=== PATIENT | female | born 1960 | race Caucasian/White ===

== ENCOUNTER 2016-07-14 14:00 | Inpatient (IN) | payer BC ==
[~2016-07-14] VITALS: Ht 170.2 cm; Wt 98.6 kg
--- NOTE | ~2016-07-14 | OR ---
PATIENT'S NAME: JORGE CONTRERASI Rosa Isela [facility] AGE: 56 Y [address] ROOM: [place] [address] LOCATION: [facility] ADMIT DATE: 07/28/2016 OR/Procedure Report DISCHARGE DATE: FAMILY PHYSICIAN: Kary Ledezma MD ATTENDING PHYSICIAN: ROBE MANRIQUEZ SURGEON: Robe Manriquez MD GEOCHEMIST: Donnie Flores CST/PADDY and Robe Zhu. DATE OF PROCEDURE: 07/28/2016 PRE-OP DIAGNOSIS: Degenerative joint disease, right knee. POST-OP DIAGNOSIS: Degenerative joint disease, right knee. OPERATION: Right total knee arthroplasty with computer navigation. ANESTHESIA: Spinal anesthesia plus adductor canal block plus periarticular local anesthesia (ropivacaine with epinephrine and Toradol). ESTIMATED BLOOD LOSS: Less than 10 mL. DRAIN: None. SPECIMEN: None. COMPLICATIONS: None. IMPLANT SYSTEM: [place] [employer]: 1. Size 5 right posterior stabilized femoral component. 2. Size 4 universal modular tibial baseplate. 3. 11 mm, posterior stabilized, size 4, X3 tibial polyethylene insert. 4. 32 mm oval X3 patella component. INDICATIONS FOR SURGERY: Carey Contreras is a 56-year-old female who presents with advanced right knee degenerative joint disease and associated severely compromised activities of daily living. The patient has decided to proceed with knee replacement after having been thoroughly counseled regarding the associated risks, benefits, and limitations. We have specifically reviewed the risks and implications of infection, deep venous thrombosis, pulmonary embolism, mortality, neurovascular complications, blood transfusion (and associated potential for disease transmission or transfusion reaction), stiffness, instability, mechanical deterioration of the components (due to wear and or loosening), and the potential need for revision. We have also emphasized the importance of active involvement and compliance with post- operative physical therapy as a means of optimizing range of motion and [facility] AGE: 56 Y [address] ROOM: [address] [address] LOCATION: [facility] ADMIT DATE: 07/28/2016 OR/Procedure Report DISCHARGE DATE: FAMILY PHYSICIAN: Kary Ledezma MD ATTENDING PHYSICIAN: ROBE MANRIQUEZ functional recovery. Informed consent has been granted. DESCRIPTION OF PROCEDURE: The patient was positioned supine after administration of anesthesia and prophylactic antibiotics. A well-padded pneumatic tourniquet was placed around the right proximal thigh, and the right lower extremity was prepped and draped with vigilant sterile technique. The patient's name as well as the intended operative side and procedure were confirmed with a verbal time-out involving myself, the circulating nurse, the scrub nurse, and the anesthesiologist. Examination under anesthesia demonstrated a well-healed inferomedial and inferolateral arthroscopy portal scars. There was a mild effusion. There were no active skin lesions or masses. There was no erythema. There was no abnormal warmth. Range of motion under anesthesia was from 2 degrees of hyperextension to 140 degrees of flexion. There was a 2B [place] and a 2+ pivot shift. Negative posterior drawer. There was no varus and valgus instability. The right lower extremity was elevated and exsanguinated with an Esmarch wrap, and the pneumatic tourniquet was inflated to 300 mmHg. The knee was approached through a longitudinal midline incision. A medial parapatellar arthrotomy was performed and the patella was everted. Examination of the joint space demonstrated a moderate amount of benign-appearing translucent synovial fluid. The anterior cruciate ligament was absent. The posterior cruciate ligament was intact. There was a small osteophyte at the intercondylar notch. There were intermixed grade 3 and grade 4 degenerative changes extending across the equator of the patella. A medial compartment unicompartmental arthroplasty was not appropriate due to the magnitude of the patellofemoral degenerative changes and the absence of the anterior cruciate ligament. There was a 1 cm diameter region of full-thickness articular cartilage loss at the central superior aspect of the femoral trochlea. There was a large osteophyte at the medial aspect of the femoral trochlea. There was full-thickness loss of articular cartilage involving 90% of the medial femoral condyle and the posterior medial 2/3rds of medial tibial plateau. There was a small osteophyte at the medial tibial plateau. There was a large osteophyte at the medial femoral condyle. There was a moderate-sized osteophyte at the lateral femoral condyle. There were mild grade 3 degenerative changes at the medial half of the lateral tibial plateau. There was a small osteophyte at the lateral tibial plateau. There was a large undersurface flap tear at the posterior horn of the medial meniscus. There was mild inner perimeter tearing of the lateral meniscus. Remnants of the menisci and cruciate ligaments were excised. The Mettl computer navigation femoral tracker was pinned in place at the distal aspect PATIENT'S NAME: CAREY CONTRERAS [facility] AGE: 56 Y [address] ROOM: [id number] [place], [place] [address] LOCATION: [facility] ADMIT DATE: 07/28/2016 OR/Procedure Report DISCHARGE DATE: FAMILY PHYSICIAN: Kary Ledezma MD ATTENDING PHYSICIAN: ROBE MANRIQUEZ of the femoral trochlea. Absence of motion between the femur and the tracking device was confirmed manually and visually. Femoral osseous landmarks were obtained in order to calibrate the computer navigation system. Landmarks included the center of rotation of the ipsilateral hip, the center-point of the distal femur, the femoral AP axis, 57 points on the medial femoral condyle articular surface, and 57 points on the lateral femoral condyle articular surface. The Mettl computer navigation system was subsequently utilized to position the distal femoral resection block such that the distal femoral resection was performed perfectly perpendicular to the femoral mechanical axis. The distal femoral resection was performed with a Tyromer oscillating saw. The Mettl computer navigation tibial tracker was pinned in place at the anterior aspect of the tibial plateau. Absence of motion between the tibia and the tracking device was confirmed manually and visually. Tibial osseous landmarks were obtained in order to calibrate the computer navigation system. Landmarks included the center-point of the tibial plateau, the AP tibial axis, 57 points on the medial tibial plateau articular surface, 57 points on the lateral tibial plateau articular surface, the medial malleolus, and the lateral malleolus. The Mettl computer navigation system was subsequently utilized to position the proximal tibial resection block such that the proximal tibial resection was performed perfectly perpendicular to the tibial mechanical axis. The proximal tibial resection was performed with a morphCARD Precision oscillating saw. Perpendicularity of the tibial resection with respect to the tibial shaft axis was reconfirmed by inserting a spacer- block attached to an extramedullary guide dl. External rotation of the anterior and posterior femoral resections was set parallel to the epicondylar axis and carefully adjusted in order to create a rectangular flexion gap. The box resection was performed with a reciprocating saw. Anterior and posterior chamfer resections were performed with the oscillating saw. Posterior condyle osteophytes were excised with an osteotome. All other osteophytes were excised with a rongeur. Resection of all remnants of the menisci was reconfirmed. Flexion and extension gaps were confirmed to be symmetric and well balanced with a spacer-block technique. The patella resection was performed with an oscillating saw such that the composite thickness of the reconstructed patella was equivalent to the thickness of the [place] patella. Patella tracking was confirmed to be optimal. A limited lateral retinacular release was required in order to optimize patella tracking. All trial components were removed and all prepared osseous surfaces were thoroughly irrigated with pulsatile saline lavage and dried prior to cementing all three components in a single stage using morphCARD Simplex cement containing PATIENT'S NAME: CAREY CONTRERAS [facility] AGE: 56 Y [address] ROOM: [address] [address] LOCATION: [facility] ADMIT DATE: 07/28/2016 OR/Procedure Report DISCHARGE DATE: FAMILY PHYSICIAN: Kary Ledezma MD ATTENDING PHYSICIAN: ROBE MANRIQUEZ pre-mixed tobramycin. All extruded excess cement was removed. The entire joint space was thoroughly inspected and thoroughly irrigated with bacteriostatic pulsatile saline lavage to assure that there was no residual debris of any sort. Final range of motion was from full extension (with no passive hyperextension) to 130 degrees of flexion. Patella tracking was reconfirmed to be optimal. There was excellent anteroposterior stability at 90 degrees of flexion. There was less than 1 mm of medial lift-off to valgus stress in full extension. There was less than 1 mm of lateral lift-off to varus stress in full extension. The arthrotomy was closed with multiple simple and [id number] interrupted #1 Vicryl. Subcutaneous tissues were thoroughly re-irrigated with bacteriostatic pulsatile saline lavage. Subcutaneous tissues were re- approximated with simple buried interrupted #0 Vicryl sutures. The skin was closed with simple buried interrupted 2-0 Vicryl sutures followed by surgical oz. The dressing consisted of Xeroform gauze, 4x4 gauze, ABD pads and two 6-inch Petr Wraps. There were no intra-operative complications. MD ROBERT MARIN/modl /[id number] d: 07/29/163 t: 08/06/166, OPERATIVE SUMMARY
--- NOTE | ~2016-07-14 | DS ---
PATIENT'S NAME: NAUN CONTRERAS [facility] AGE: 56 Y [address] ROOM: [place] [address] LOCATION: [facility] ADMIT DATE: 07/28/2016 Discharge Summary DISCHARGE DATE: 07/30/2016 FAMILY PHYSICIAN: Kary Ledezma MD ATTENDING PHYSICIAN: Juvenal Mckenna PRIMARY DIAGNOSIS: Degenerative joint disease of the right knee. SECONDARY DIAGNOSES: 1. Gastroesophageal reflux disease. 2. Hypercholesterolemia. PROCEDURE PERFORMED: Right total knee arthroplasty. HISTORY: The patient is a 56-year-old female, who presents with advanced right knee degenerative joint disease and associated severely compromised activities of daily living. The patient has decided to proceed with total knee arthroplasty after having been thoroughly counseled regarding the risks, benefits, limitations and alternatives. Please refer to the outpatient clinic notes and admission history and physical for this patient. HOSPITAL COURSE: The patient underwent a right total knee arthroplasty on 07/28/2016 without complications. Spinal anesthesia plus adductor canal block plus periarticular local anesthesia was utilized. The patient received 24 hours of perioperative prophylactic antibiotics and remained hemodynamically stable, neurovascularly intact throughout the entire hospital course. The postoperative prophylactic deep venous thrombosis prophylaxis consisted of Xarelto, early mobilization and pneumatic compression devices. Daily physical therapy for gait training, transfer training range of motion and quadriceps isometric exercises were received. The patient progressed well in physical therapy. On the date of discharge, 07/30/2016, the incision at the knee was healing well and showed no signs of infection. DISPOSITION: Home. DISCHARGE ACTIVITY: The patient is to bear weight as tolerated with range of motion and quadriceps isometric exercises as instructed. The operative extremity is to be elevated at least 90% of the day. There is to be sterile 4x4 gauze dressings to the incision daily. Dr. Mckenna is to be notified immediately if there is any increased pain, fevers, chills erythema or drainage. DISCHARGE MEDICATIONS: 1. Xarelto 10 mg 1 tab p.o. daily for 12 days for postoperative DVT prophylaxis. PATIENT'S NAME: NAUN CONTRERAS [facility] AGE: 56 Y [address] ROOM: [place] [address] LOCATION: [facility] ADMIT DATE: 07/28/2016 Discharge Summary DISCHARGE DATE: 07/30/2016 FAMILY PHYSICIAN: Kary Ledezma MD ATTENDING PHYSICIAN: Juvenal Mckenna 2. Gabapentin 300 mg 1 tab p.o. at night for pain for 7 days. 3. Hydromorphone 2 mg 1 to 2 tabs p.o. every 4 hours p.r.n. for pain. 4. Diazepam 5 mg 1/2 to 1 tab p.o. every 6 hours p.r.n. for muscle spasms. 5. Celebrex 200 mg 1 tab p.o. b.i.d. for 7 days for pain. 6. She was then instructed to continue all her other pre-admission medications as instructed by her Internal Medicine doctor. FOLLOWUP: Followup appointment is to be with Dr. Mckenna's office on 08/04/2016 for her initial postoperative evaluation with x-rays and for staple removal. HOLGER SANCHEZ PA-C FOR MD MARLY MARIN/brit /[id number] d: 08/05/16 0406 t: 08/10/16 0910, DISCHARGE SUMMARY
[~2016-07-14 14:00] MED LIST: PROTONIX40 MG PO; TYLENOL EXTRA500 MG PO
[2016-07-14] MEDS ORDERED: ULTRAM50 MG PO (15:31)
[2016-07-14] MEDS ORDERED: THERA-VITE W/ B1 TAB PO (15:32)
[2016-07-29 05:52] LABS: HEMOGLOBIN 9.7 g/dL (10.0-15.0)
[2016-07-30] MEDS ORDERED: COLACE100 MG PO (10:32)
[2016-07-30] MEDS ORDERED: NEURONTIN300 MG PO (10:32)
[2016-07-30] MEDS ORDERED: MIRALAX17 GM PO (10:33)
[2016-07-30] MEDS ORDERED: XARELTO10 MG PO (10:37)
[2016-07-30] MEDS ORDERED: VALIUM5 MG PO (10:38)
[2016-07-30] MEDS ORDERED: DILAUDID 2MG(HYD2 MG PO (10:39)
[2016-07-30] MEDS ORDERED: CELEBREX200 MG PO (10:43)
== END 2016-07-30 15:50 | disposition disaster alternative care site (69) | DRG 470 ==
LOC: G3N 07-28 05:08
PROVIDERS: ADMIT Orthopaedic Surgery
PROC: 0SRC0J9 Replacement of Right Knee Joint with Synthetic Substitute, Cemented, Open Approach (ICD-10-PCS; principal; 2016-07-28)
DX: M17.11 Unilateral primary osteoarthritis, right knee (principal); E66.9 Obesity, unspecified; K21.9 Gastro-esophageal reflux disease without esophagitis; R33.9 Retention of urine, unspecified; R51 Headache; Z68.31 Body mass index [BMI] 31.0-31.9, adult
CPT/HCPCS: C1713; C1776; J0690; J1100; J1885; J2001; J2250; J2405; J2795; J7030; J7120

== ENCOUNTER → 2016-07-16 | Outpatient (CLI) | payer BC ==
[~2016-07-16] MED LIST changes: +CELEBREX200 MG PO; +COLACE100 MG PO; +DILAUDID 2MG(HYD2 MG PO; +MIRALAX17 GM PO; +NEURONTIN300 MG PO; +THERA-VITE W/ B1 TAB PO; +ULTRAM50 MG PO; +VALIUM5 MG PO; +XARELTO10 MG PO
== END | disposition disaster alternative care site (69) ==
LOC: GRAD 10:00 → GNJRC 10:12 → GRAD 07-28 10:00
DX: Z01.812 Encounter for preprocedural laboratory examination (principal); M17.11 Unilateral primary osteoarthritis, right knee